=== PATIENT | female | born 1985 | race Caucasian/White ===

== ENCOUNTER 2024-06-19 17:31 | Inpatient (IN) ==
[2024-06-19] MEDS ORDERED: LIDOCAINE 1% LOCAL 20 ML VIAL INFIL PRN (17:41)
[2024-06-19] MEDS ORDERED: CALCIUM CARBONATE 500 MG CHEWABLE TAB PO PRN (17:41)
[2024-06-19] MEDS ORDERED: OXYTOCIN 30 UNITS/NSS 30 UNITS/500 ML BAG IV PRN ×2 (17:41→19:15)
[2024-06-19] MEDS ORDERED: ACETAMINOPHEN 500 MG TAB PO PRN (17:41)
[2024-06-19] MEDS: LACTATED RINGER'S 1,000 ML IV PRN (17:42)
[2024-06-19 18:13] LABS: Hematocrit (blood only) 34.7 % (37.0-47.0); Hemoglobin 12.6 g/dl (12.0-16.0); Mean Corpuscular Hemoglobin 31.8 pg (25.0-34.0); Mean Corpuscular Hgb Conc 36.3 g/dL (32.0-36.0); Mean Corpuscular Volume 87.6 fL (80.0-100.0); Mean Platelet Volume 8.8 fL (9.4-12.4); Platelet Count 167 K/uL (130-400); RDW Coefficient of Variation 11.6 % (11.5-14.5); RDW Standard Deviation 37.2 fL (36.4-46.3); Red Blood Count 3.96 M/uL (4.20-5.40); White Blood Count 10.67 K/ul (4.8-10.8)
[2024-06-19 18:26] LABS: Creatinine Clr Calc Pharmacy 137.6 ml/min
[2024-06-19] MEDS ORDERED: BENZOCAINE 20% SPRY 85 APPLN/85 GM CAN EXT PRN (19:15)
[2024-06-19] MEDS ORDERED: bisacodyL 10 MG SUPP PR PRN (19:15)
[2024-06-19] MEDS ORDERED: ACETAMINOPHEN 325 MG TAB PO PRN (19:15)
[2024-06-19] MEDS ORDERED: HYDROCORTISONE ACETATE 25 MG SUPP PR PRN (19:15)
[2024-06-19] MEDS ORDERED: IBUPROFEN 600 MG TAB PO PRN (19:15)
[2024-06-19] MEDS ORDERED: DIPHTHER/TETAN/PERTUS Vaccine (Tdap, Adol/Adult) 0.5mL IM ONE (19:15)
--- NOTE | 2024-06-19 19:19 | Delivery Summary ---
Vaginal Delivery Summary Date of Service June 19, 2024 Vaginal Delivery Summary Patient progressed to 10 cm dilated 100% effaced +1 station pushed over intact perineum without anesthesia and delivered a viable female with weight and Apgars pending. Head of the delivered without difficulty quickly followed by shoulders and body. was noted be vigorous upon delivery and a 1 minute delayed cord clamping was initiated. Cord then double clamped and cut and remained on maternal abdomen. Cord blood obtained and attention turned delivery of the placenta delivered intact three-vessel cord gentle cord traction. Inspection of perineum vagina cervix was noted be no lacerations. Both mother and stable in the immediate post delivery timeframe. No complications noted and blood loss per QBL and chart. [facility] Vaginal Delivery Charge Delivery Type Details: [facility]
[2024-06-19] MEDS: DOCUSATE SODIUM 100 MG CAP PO SCH (22:25)
--- NOTE | 2024-06-20 07:16 | Obstetrical Progress Note ---
Date of Service <Dav Chauhan MD - Last Filed: 06/20/24 07:45> June 20, 2024 Assessment & Plan <Dav Chauhan MD - Last Filed: 06/20/24 07:45> (1) care and examination: PPD#1 s/p at 37 wga. Stable. Rh+, GBS neg, ri, VSS Continue routine care, ambulation, diet as tolerated Plan for DC tomorrow <Devendra Alston MD - Last Filed: 06/20/24 07:51> (1) care and examination: Subjective <Dav Chauhan MD - Last Filed: 06/20/24 07:45> Selin is a 38yo who is PPD#1 following at 39 wga Mild abd pain/cramping, well managed on analgesics Tolerating meals, voiding, passing gas, ambulating normally Lochia minimal, diminishing Planning to breastfeed. Would like to stay another night, d/t concern after eclamptic seizure 4d w first . Currently no EDOUARD and BP wnl Constitutional: no fever, no chills or no sweats Respiratory: no dyspnea Cardiovascular: no chest pain, no palpitations or no calf pain Breast: no breast pain Gastrointestinal: no nausea or no vomiting Genitourinary (female): no dysuria Neurologic: no headache(s) no changes in vision, no headaches Physical Exam <Dav Chauhan MD - Last Filed: 06/20/24 07:45> General: Alert, oriented. No acute distress. Cardiac: Regular rate and rhythm, no murmurs, rubs, or gallops. Respiratory: Clear to auscultation bilaterally. No increased work of breathing. Symmetrical chest rise. No respiratory distress. Abdomen: Soft, nontender, nondistended. Bowel sounds present. Uterus: Uterine fundus firm, nontender, palpable at the level of the umbilicus. Lower extremities: No lower extremity edema or swelling. No deep calf pain. Results & Data <Dav Chauhan MD - Last Filed: 06/20/24 07:45> Vital Signs (Past 12 Hours) Vital Signs Temp Pulse Pulse Resp BP BP Pulse Ox 06/20/24 04:35 36.8 C 64 14 116/78 06/20/24 01:15 37.0 C 66 16 144/90 H 06/19/24 21:29 37.6 C H 87 18 136/78 98 06/19/24 20:52 68 06/19/24 20:52 119/72 06/19/24 20:37 74 06/19/24 20:37 121/71 06/19/24 20:22 73 06/19/24 20:22 124/70 06/19/24 20:07 74 06/19/24 20:07 130/74 06/19/24 19:52 72 06/19/24 19:52 135/75 06/19/24 19:37 70 06/19/24 19:37 135/73 06/19/24 19:22 81 06/19/24 19:22 141/73 H O2 Del Method 06/20/24 04:35 Room Air 06/20/24 01:15 Room Air 06/19/24 21:29 Room Air 06/19/24 20:52 06/19/24 20:52 06/19/24 20:37 06/19/24 20:37 06/19/24 20:22 06/19/24 20:22 06/19/24 20:07 06/19/24 20:07 06/19/24 19:52 06/19/24 19:52 06/19/24 19:37 06/19/24 19:37 06/19/24 19:22 06/19/24 19:22 Supervising Physician <Devendra Alston MD - Last Filed: 06/20/24 07:51> Co-Signing Physician Notes Patient seen with resident and agree with the above findings and plan. Has a history of eclampsia with prior . Denying preeclampsia symptoms and blood pressures have been mostly normal range with occasional mild range elevation. Recommend she stay at least through tomorrow for monitoring. Has a blood pressure monitor at home and recommended blood pressure monitoring once discharged. Preeclampsia precautions reviewed all questions answered. Resident Activity Tracking <Dav Chauhan MD - Last Filed: 06/20/24 07:45> Resident Involvement: Resident Care Provided Care Provided: Adult Hospital Medicine
[2024-06-20] MEDS: FERROUS SULFATE 325 MG TAB PO SCH (07:34)
[2024-06-20] MEDS: PRENATAL VITAMIN 1 TAB PO SCH (07:34)
[2024-06-20 08:43] VITALS: O2SAT 97
[2024-06-20] MEDS: bisacodyL 5 MG TABEC PO SCH (20:20)
[2024-06-20 21:39] VITALS: RESP 16
--- NOTE | 2024-06-21 06:08 | Obstetrical Progress Note ---
Date of Service <Dav Chauhan MD - Last Filed: 06/21/24 07:06> June 21, 2024 Assessment & Plan <Dav Chauhan MD - Last Filed: 06/21/24 07:06> (1) care and examination: PPD#2 s/p at 37 wga. Stable. Rh+, GBS neg, ri, VSS Continue routine care, ambulation, diet as tolerated Plan for DC today w usual 6-week follow-up appt <Maylin Fuchs MD - Last Filed: 06/21/24 07:07> (1) care and examination: Subjective <Dav Chauhan MD - Last Filed: 06/21/24 07:06> Selin is a 38yo who is PPD#1 following at 39 wga Mild abd pain/cramping, well managed on analgesics Tolerating meals, voiding, passing gas, ambulating normally Lochia minimal, diminishing Planning to breastfeed. H/o eclamptic seizure (G1 PPD4) but currently BP wnl, no EDOUARD, n/v, SOB, or vision changes Constitutional: no fever, no chills or no sweats Respiratory: no dyspnea Cardiovascular: no chest pain, no palpitations or no calf pain Breast: no breast pain Gastrointestinal: no nausea or no vomiting Genitourinary (female): no dysuria Neurologic: no headache(s) Physical Exam <Dav Chauhan MD - Last Filed: 06/21/24 07:06> General: Alert, oriented. No acute distress. Cardiac: Regular rate and rhythm, no murmurs, rubs, or gallops. Respiratory: Clear to auscultation bilaterally. No increased work of breathing. Symmetrical chest rise. No respiratory distress. Abdomen: Soft, nontender, nondistended. Bowel sounds present. Uterus: Uterine fundus firm, nontender, palpable 1cm below the umbilicus. Lower extremities: No lower extremity edema or swelling. No deep calf pain. Results & Data <Dav Chauhan MD - Last Filed: 06/21/24 07:06> Vital Signs (Past 12 Hours) Vital Signs Temp Pulse Resp BP Pulse Ox O2 Del Method 06/21/24 05:00 36.7 C 58 L 16 102/74 97 Room Air 06/20/24 20:00 36.9 C 72 16 113/74 97 Room Air Supervising Physician <Maylin Fuchs MD - Last Filed: 06/21/24 07:07> Co-Signing Physician Notes Resident Physician Supervision Note: I interviewed and examined the patient. Discussed with Dr. Chauhan and agree with findings and plan as documented in the note. Any exceptions or clarifications are listed here: [ ] Documented By: Maylin Fuchs MD, FACOG Resident Activity Tracking <Dav Chauhan MD - Last Filed: 06/21/24 07:06> Resident Involvement: Resident Care Provided Care Provided: Adult Hospital Medicine
[2024-06-21 07:21] VITALS: BP 101/68; PULSE 71; TEMP 98.4
== END 2024-06-21 09:33 | disposition home or self-care (01) | DRG 807 ==
LOC: 4S1 17:31 → 4E2 21:38